=== PATIENT | male | born 1955 | race Caucasian/White ===

== ENCOUNTER 2018-03-09 11:18 | Emergency (ER) | payer BC ==
--- NOTE | 2018-03-09 19:48 | EDM.PDOC ---
ED HPI GENERAL MEDICAL PROBLEM - General Chief Complaint: ENT Problem Stated Complaint: tooth abscess Time Seen by Provider: 03/09/18 11:18 Source of Information: Reports: Patient History Limitations: Reports: No Limitations - History of Present Illness INITIAL COMMENTS - FREE TEXT/NARRATIVE: PtDenis presents to ER with complaints to pain due to fracture of the L lower molar. States that he tooth is decay, and that the majority of the tooth broke off several days ago. Complains of increased discomfort, fever, and chills. No difficulty with swallowing or managing her secretions. Location: Reports: Other (dental pain) Quality: Reports: Ache, Throbbing Severity: Severe left lower tooth/jaw area Pain Score (Numeric/FACES): 10 - Related Data Allergies Allergy/AdvReac Type Severity Reaction Status Date / Time No Known Allergies Allergy Verified 03/09/18 11:28 Home Meds: Home Meds cycloSPORINE [Cyclosporine] 100 mg PO Q7D 03/09/18 [History] Social & Family History - Tobacco Use Smoking Status *Q: Never Smoker - Recreational Drug Use Recreational Drug Use: No ED ROS GENERAL - Review of Systems Review Of Systems: See Below Constitutional: Reports: No Symptoms HEENT: Reports: Dental Pain Respiratory: Reports: No Symptoms Cardiovascular: Reports: No Symptoms Endocrine: Reports: No Symptoms GI/Abdominal: Reports: No Symptoms : Reports: No Symptoms Musculoskeletal: Reports: No Symptoms Skin: Reports: No Symptoms Neurological: Reports: No Symptoms Psychiatric: Reports: No Symptoms Hematologic/Lymphatic: Reports: No Symptoms Immunologic: Reports: No Symptoms ED EXAM, GENERAL - Physical Exam Exam: See Below Exam Limited By: No Limitations General Appearance: Alert, WD/WN, No Apparent Distress Nose: Normal Inspection, Normal Mucosa, No Blood Throat/Mouth: Other (severe tooth decay to L lower molar) Head: Atraumatic, Normocephalic Neck: Normal Inspection, Supple, Non-Tender, Full Range of Motion Respiratory/Chest: No Respiratory Distress, Lungs Clear, Normal Breath Sounds, No Accessory Muscle Use, Chest Non-Tender Cardiovascular: Normal Peripheral Pulses, Regular Rate, Rhythm, No Edema, No Gallop, No JVD, No Murmur, No Rub Peripheral Pulses: 4+: Radial (L), Radial (R) GI/Abdominal: Normal Bowel Sounds, Soft, Non-Tender, No Organomegaly, No Distention, No Abnormal Bruit, No Mass (Male) Exam: Deferred Rectal (Males) Exam: Deferred Back Exam: Normal Inspection, Full Range of Motion, NT Extremities: Normal Inspection, Normal Range of Motion, Non-Tender, Normal Capillary Refill, No Pedal Edema Neurological: Alert, Oriented, CN II-XII Intact, Normal Cognition, Normal Gait, Normal Reflexes, No Motor/Sensory Deficits Psychiatric: Normal Affect, Normal Mood Skin Exam: Warm, Dry, Intact, Normal Color, No Rash Course - Vital Signs Last Recorded V/S: Last Vital Signs Temp 38.2 C H 03/09/18 11:24 Pulse 100 03/09/18 11:24 Resp 16 03/09/18 11:24 BP 162/98 H 03/09/18 11:24 Pulse Ox 96 03/09/18 11:24 Departure - Departure Time of Disposition: 11:54 Disposition: Home, Self-Care 01 Clinical Impression: Dental caries extending into dentin - Discharge Information Instructions: Dental Abscess Referrals: PCP,Not In Area [Primary Care Provider] - Forms: ED Department Discharge Additional Instructions: augmentin 875mg twice daily for 10 days [place] 5/325mg 1 every 6 hours as needed for pain Get to a dentist CRISTIANO to get the tooth pulled. - Assessment/Plan Plan: augmentin 875mg twice daily for 10 days [place] 5/325mg 1 every 6 hours as needed for pain Get to a dentist CRISTIANO to get the tooth pulled.
== END 2018-03-09 11:54 | disposition home or self-care (01) ==
LOC: VM.ED 11:18
DX: K02.9 Dental caries, unspecified (principal)
CPT/HCPCS: 99282